=== PATIENT | female | born 1980 | race Caucasian/White ===

== ENCOUNTER 2022-04-15 17:35 | Emergency (ER) | payer OTHER ==
[2022-04-15] MEDS ORDERED: Ciprofloxacin 500 MG Tab PO ONE (17:36)
[2022-04-15] MEDS ORDERED: Tamsulosin 0.4 MG Cap.ER PO ONE (17:36)
[2022-04-15] MEDS ORDERED: Acetaminophen/oxyCODONE 325-5 MG Tab PO ONE (17:36)
[2022-04-15] MEDS ORDERED: Orphenadrine 60 MG/2 ML Inj IM ONE (17:53)
[2022-04-15] MEDS ORDERED: Ketorolac 30 MG/ML SDV IM ONE (17:53)
[2022-04-15] MEDS ORDERED: Sodium Chloride 0.9% 1,000 ML IV ONE (18:36)
[2022-04-15 19:15] LABS: ANION GAP 12.1 mEq/L (7-13)
[2022-04-15] MEDS ORDERED: HYDROmorphone 0.5 MG/0.5 ML Syringe IVPUSH ONE (20:39)
[2022-04-15] MEDS ORDERED: Acetaminophen/oxyCODONE 325-5 MG Tab ONE (20:58)
[2022-04-15] MEDS ORDERED: Ciprofloxacin 500 MG Tab ONE (20:59)
[2022-04-15] MEDS ORDERED: Tamsulosin 0.4 MG Cap.ER ONE (21:00)
== END 2022-04-15 21:20 | disposition home or self-care (01) ==
LOC: DL.ED 17:35
DX: N13.2 Hydronephrosis with renal and ureteral calculous obstruction (principal); Z88.8 Allergy status to other drugs, medicaments and biological substances
CPT/HCPCS: 36415; 74176; 80053; 81001; 84145; 85025; 87086; 96361; 96372; 96374; 99284; A9270; J1170; J1885; J2360; J7030